=== PATIENT | male | born 1970 | race Caucasian/White ===

== ENCOUNTER 2020-03-02 17:12 | Emergency (ER) | payer OTHER, SELFPAY ==
--- NOTE | ~2020-03-02 | XR_ITS ---
EXAMINATION: XR chest 2V DATE: 03/02/2020 19:14 INDICATION: Hypertension presenting with mid sternal chest and left arm pain TECHNIQUE: PA and lateral views of the chest were obtained. COMPARISON: None FINDINGS: The lungs are clear with no focal airspace opacities, pulmonary edema, pleural effusion or pneumothor ax. The cardiomediastinal silhouette is normal. Cholecystectomy clips in the right upper quadrant. William ashley and soft tissues are unremarkable. IMPRESSION: 1. No acute cardiopulmonary disease. Reviewed, dictated and finalized at location [facility].
--- NOTE | 2020-03-02 17:14 | ECG_ITS ---
Measurements Intervals [place] Rate: 89 P: 35 MT: 142 QRS: -5 QRSD: 108 T: 0 QT: 340 QTc: 414 Interpretive Statements SINUS RHYTHM WITH SINUS ARRHYTHMIA INCOMPLETE RIGHT BUNDLE BRANCH BLOCK DELAYED PRECORDIAL R/S TRANSITION VOLTAGE CRITERIA FOR LVH BORDERLINE T WAVE ABNORMALITY- INFERIOR LEADS BORDERLINE ECG Electronically Signed On 03-02-2020 18:40:00 CDT by Zach Harrington D.O.
[2020-03-02 17:27] VITALS: BP 133/87; PULSE 107; RESP 17; TEMP 36.7; O2SAT 98
[2020-03-02 17:31] LABS: Basophils Absolute Auto 0.1 K/mm3 (0.0-0.1); Basophils Percent Auto 0.6 % (0.2-1.2); Eosinophils Absolute Auto 0.1 K/mm3 (0-0.3); Eosinophils Percent Auto 1.3 % (0-4.4); Hematocrit 44.6 % (42.0-52.0); Hemoglobin 15.5 g/dL (14.0-18.0); Immature Granulocyte Absolute 0.05 K/mm3 (0.00-0.031); Immature Granulocyte Percent A 0.6 % (0-0.5); Lymphocytes Absolute Auto 2.43 K/mm3 (0.9-3.2); Lymphocytes Percent Auto 28.9 % (18.3-44.2); Mean Corpuscular HGB Conc 34.8 g/dl (32-36); Mean Corpuscular Hemoglobin 30.3 pg (26-34); Mean Corpuscular Volume 87.1 fl (80-100); Mean Platelet Volume 10.4 fl (7.4-10.4); Monocytes Absolute Auto 0.8 K/mm3 (0.1-0.6); Monocytes Percent Auto 9.1 % (2.6-8.5); Neutrophils Percent Auto 59.5 % (45.5-73.1); Platelet Count Result 322 k/mm3 (150-375); Red Blood Count 5.12 M/mm3 (4.6-6.20); Red Cell Distribution Width 12.8 % (11.5-14.5); White Blood Count 8.4 K/mm3 (4.5-10.0)
[2020-03-02 17:42] LABS: Anion Gap 11 mmol/L (8-16); Blood Urea Nitrogen 18 mg/dL (9-20); Calcium 9.6 mg/dL (8.4-10.2); Carbon Dioxide 26 mmol/L (22-30); Chloride 101 mmol/L (98-107); Estimated CRCL calculation 88 ml/min; Estimated Glomerular Filt Rate > 60; Glucose 106 mg/dL (75-110); Potassium 3.8 mmol/L (3.4-5.0); Sodium 138 mmol/L (137-145)
[2020-03-02 17:45] LABS: INR 0.9; Prothrombin Time 11.8 Seconds (11.1-14.7)
[2020-03-02 17:46] LABS: Partial Thromboplastin Time 30.1 SECONDS (22.3-36.8)
[2020-03-02 17:53] LABS: Troponin I < 0.012 ng/mL (0.000-0.034)
--- NOTE | 2020-03-02 20:00 | ED.CHESTPAIN ---
HPI - Chest Pain General Chief Complaint: Chest Pain Stated Complaint: CHEST PAIN Time Seen by Provider: 03/02/20 19:00 History of Present Illness HPI narrative: Patient is a 49-year-old male who presents the ER with chest discomfort and left arm pain. Patient reports he became very stressed yesterday and developed severe left arm pain. The arm pain lasted for approximately 2 hours and his stress only lasted for 10 to 15 minutes. He was having no diaphoresis or shortness of breath at that time. He did not note any chest discomfort at that time. He reports history of CHF and has been seen by Dr. Dumont with [facility]. He does have hypertension. Reports the majority of his stress is derived from his marriage because his is a narcissist. It is caused him to lose a job in the past. Patient reports today while walking around he had some very subtle central chest discomfort that did not radiate that he does not think he was experiencing yesterday. He has never had an VT. No discomfort at this time. The arm discomfort occurring during times of stress is happened twice last couple weeks and be episode he had last night was remarkably more severe. Related Data Home Medications Medication Instructions Recorded Confirmed amlodipine 2.5 mg PO BID 03/02/20 losartan-hydrochlorothiazide 1 tablet PO DAILY 03/02/20 Allergies Allergy/AdvReac Type Severity Reaction Status Date / Time No Known Allergies Allergy Verified 03/02/20 19:05 Review of Systems Review of Systems: All systems reviewed & are unremarkable except as noted in HPI and below Constitutional: Constitutional: Denies chills, Denies fever(s) and Denies weakness ENT: Denies dizziness and Denies sore throat Cardiovascular: Cardiovascular: Reports chest pain, Denies rapid heart rate and Reports radiating jaw, neck or arm pain Respiratory: Respiratory: Denies cough, Denies dyspnea and Denies wheezing Gastrointestinal: Gastrointestinal: Denies nausea and Denies vomiting [facility] Past Medical History Medical History (Updated 03/02/20 @ 21:39 by Christopher Anguiano MD) Cardiomyopathy DVT (deep venous thrombosis) Hypertension Pulmonary embolism Surgical History Surgical History (Updated 03/02/20 @ 20:06 by Christopher Anguiano MD) History of cholecystectomy Social History Social History (Updated 03/02/20 @ 20:06 by Christopher Anguiano MD) Smoking status: Never smoker Gender identity (if verbalized by the patient): Male Exam Narrative: Exam Narrative: GENERAL: Well-appearing, well-nourished, and in no acute distress. HEAD: Normocephalic, atraumatic. CHEST: Clear to auscultation. No respiratory distress. HEART: Regular rate and rhythm. Normal peripheral pulses. EXTREMITIES: Normal range of motion. No edema. SKIN: Warm, dry, no rash. NEURO: Alert and oriented x3. PSYCH: Normal mood and affect. Course Course Emergency Course: Troponin negative x2. Discussed case with Dr. Sky certified pharmacy technician with [facility]. Recommends outpatient work-up and patient be contacted by the office. Vital Signs Vital signs: Vital Signs Temperature 98.1 F 03/02/20 17:27 Pulse Rate 107 H 03/02/20 17:27 Respiratory Rate 17 03/02/20 17:27 Blood Pressure 133/87 03/02/20 17:27 Pulse Oximetry 98 03/02/20 17:27 Temperature 98.1 F 03/02/20 17:27 Pulse Rate 87 03/02/20 21:31 Respiratory Rate 17 03/02/20 21:31 Blood Pressure 131/92 H 03/02/20 21:31 Pulse Oximetry 96 03/02/20 21:31 MDM - Chest Pain Lab Data Result diagrams: 03/02/20 17:23 03/02/20 17:23 Labs: Lab Results 03/02/20 03/02/20 03/02/20 Range/Units 17:23 17:23 17:23 WBC 8.4 (4.5-10.0) K/mm3 RBC 5.12 (4.6-6.20) M/mm3 Hgb 15.5 (14.0-18.0) g/dL Hct 44.6 (42.0-52.0) % MCV 87.1 (80-100) fl MCH 30.3 (26-34) pg MCHC 34.8 (32-36) g/dl RDW 12.8 (11.5-14.5) % Plt Count 322 (1
[2020-03-02 20:54] VITALS: BP 142/88; PULSE 86; RESP 16; O2SAT 97
[2020-03-02 21:23] LABS: Troponin I < 0.012 ng/mL (0.000-0.034)
[2020-03-02 21:31] VITALS: BP 131/92; PULSE 87; RESP 17; O2SAT 96
== END 2020-03-02 22:06 | disposition home or self-care (01) ==
PROVIDERS: Emergency Medicine; Emergency Provider Emergency Medicine; PCP Family Medicine
DX: R07.89 Other chest pain (principal); I11.0 Hypertensive heart disease with heart failure; I50.9 Heart failure, unspecified; Z86.718 Personal history of other venous thrombosis and embolism; Z86.711 Personal history of pulmonary embolism; I45.10 Unspecified right bundle-branch block; R94.31 Abnormal electrocardiogram [ECG] [EKG]
CPT/HCPCS: 36415; 71046; 80048; 84484; 85025; 85610; 85730; 93005; 99284

== ENCOUNTER 2020-07-29 22:51 | Emergency (ER) | payer OTHER, SELFPAY ==
--- NOTE | ~2020-07-29 | CT_ITS ---
EXAMINATION: CTA chest PE protocol DATE: 07/30/2020 00:04 INDICATION: Dyspnea. Covid 19 infection. TECHNIQUE: Computed tomography angiography (CTA) of the chest was performed with 100 mL Omnipaque-350 intravenous contrast timed to evaluate the pulmonary arteries. Coronal maximum intensity projection 3D-reconstructions were created by the technologist. Automated exposure control and iterative reconst ruction technique were employed. Exam dose: 597.48 mGy-cm total exam DLP. COMPARISON: None. FINDINGS: There is limited contrast enhancement of the pulmonary arteries. No central pulmonary embol ism is identified. Normal heart size. No pericardial or pleural effusion. There are a few focal and mild infiltrates in the posterior left upper lobe and posterolateral basilar left lower lobe. These may represent areas o f mild pneumonia. No hilar or mediastinal mass lesion or lymphadenopathy. Included skeletal structures are unremarkable. IMPRESSION: Limited contrast enhancement of the pulmonary arteries; no apparent central pulmonary em bolism Several focal mild left upper and lower lobe infiltrates Reviewed, dictated and finalized at [facility]. Reviewed, dictated and finalized at location [facility]. TRE ARTS PROFESSOR IMPRESSION: Limited contrast enhancement of the pulmonary arteries; no apparen t central pulmonary embolism Several focal mild left upper and lower lobe infiltrates
[2020-07-29 22:56] VITALS: BP 126/86; PULSE 109; RESP 24; TEMP 36.5; O2SAT 98
--- NOTE | 2020-07-29 23:10 | ECG_ITS ---
Measurements Intervals [place] Rate: 88 P: 23 [place]: 171 QRS: -7 QRSD: 110 T: 32 QT: 340 QTc: 412 Interpretive Statements SINUS RHYTHM DELAYED PRECORDIAL R/S TRANSITION VOLTAGE CRITERIA FOR LVH BORDERLINE T WAVE ABNORMALITY- ANTERIOR LEADS BASELINE ARTIFACT- I, II, AVR, AVF BORDERLINE ECG Electronically Signed On 07-30-2020 7:30:23 NUCLEAR POWERPLANT SUPERVISOR by Zach Harrington D.O.
[2020-07-29 23:21] LABS: Basophils Percent Auto 0.2 % (0.2-1.2); Eosinophils Absolute Auto 0.1 K/mm3 (0-0.3); Eosinophils Percent Auto 1.7 % (0-4.4); Hematocrit 43.4 % (42.0-52.0); Hemoglobin 15.3 g/dL (14.0-18.0); Immature Granulocyte Absolute 0.04 K/mm3 (0.00-0.031); Immature Granulocyte Percent A 0.5 % (0-0.5); Lymphocytes Absolute Auto 2.95 K/mm3 (0.9-3.2); Lymphocytes Percent Auto 36.7 % (18.3-44.2); Mean Corpuscular HGB Conc 35.3 g/dl (32-36); Mean Corpuscular Hemoglobin 29.9 pg (26-34); Mean Corpuscular Volume 84.8 fl (80-100); Mean Platelet Volume 10.2 fl (7.4-10.4); Monocytes Absolute Auto 0.6 K/mm3 (0.1-0.6); Monocytes Percent Auto 7.5 % (2.6-8.5); Neutrophils Absolute Auto 4.3 K/mm3 (1.3-6.7); Neutrophils Percent Auto 53.4 % (45.5-73.1); Platelet Count Result 316 k/mm3 (150-375); Red Blood Count 5.12 M/mm3 (4.6-6.20); Red Cell Distribution Width 12.7 % (11.5-14.5)
[2020-07-29 23:30] LABS: INR 0.8; Prothrombin Time 11.8 Seconds (11.1-14.7)
[2020-07-29 23:31] LABS: Partial Thromboplastin Time 28.8 SECONDS (22.3-36.8)
[2020-07-29 23:33] LABS: Alanine Aminotransferase 74 U/L (4-50); Albumin Level 4.3 g/dL (3.5-5.1); Alkaline Phosphatase 45 U/L (38-126); Anion Gap 8 mmol/L (8-16); Aspartate Amino Transferase 30 U/L (17-59); Bilirubin,Total 0.3 mg/dL (0.2-1.3); Blood Urea Nitrogen 24 mg/dL (9-20); Calcium 9.1 mg/dL (8.4-10.2); Carbon Dioxide 28 mmol/L (22-30); Chloride 102 mmol/L (98-107); Estimated CRCL calculation 87 ml/min; Estimated Glomerular Filt Rate > 60; Glucose 128 mg/dL (75-110); Potassium 3.3 mmol/L (3.4-5.0); Sodium 138 mmol/L (137-145)
--- NOTE | 2020-07-29 23:34 | ED.GENADULT ---
HPI - General Adult General Chief complaint: Upper Respiratory Infection Stated complaint: sob, covid + Time Seen by Provider: 07/29/20 23:06 Source: RN notes reviewed History of Present Illness HPI narrative: Patient presents emergency department from home for shortness of breath. Patient states that he was diagnosed with Covid 11 days ago. States that today he began to feel similar shortness of breath at home and presented to the emergency department for further evaluation. This time he states that shortness of breath is improved he denies any fevers or chills chest pain or any other symptoms denies any tobacco use patient states he does have a history of blood clot in the past when he tore his calf muscle but is on no current blood thinners Related Data Home Medications Medication Instructions Recorded Confirmed amlodipine 2.5 mg PO BID 03/02/20 losartan-hydrochlorothiazide 1 tablet PO DAILY 03/02/20 Allergies Allergy/AdvReac Type Severity Reaction Status Date / Time No Known Allergies Allergy Verified 03/02/20 19:05 Review of Systems Review of Systems: Narrative: Gen.: Denies fevers or chills ENT: Denies congestion Respiratory: See HPI CV: Denies chest pain or palpitations GI: Denies abdominal pain nausea, emesis or diarrhea Musculoskeletal: Denies back pain or muscle pain Neuro: Denies numbness, tingling, weakness or focal weakness Skin: Denies rash Except as documented, all other systems reviewed and negative PMFSH Past Medical History Medical History Cardiomyopathy DVT (deep venous thrombosis) Hypertension Pulmonary embolism Surgical History Surgical History (Updated 03/02/20 @ 20:06 by Christopher Anguiano MD) History of cholecystectomy Social History Social History Smoking status: Never smoker Gender identity (if verbalized by the patient): Male Exam Narrative: Exam Narrative: APPEARANCE: No acute distress, nontoxic, resting in bed EYES: EOMI HEENT: Normocephalic, atraumatic, OMM RESPIRATORY: No respiratory distress Clear to auscultation bilaterally with no rhonchi wheezing or rales. CARDIOVASCULAR: Regular rate and rhythm without murmurs rubs or gallops. ABDOMINAL: Soft, nontender, nondistended, no rebound or guarding MUSCULOSKELETAl: Moves all extremities. No clubbing, cyanosis or edema. NEURO: Awake and alert. Following commands, speech normal, no focal deficits SKIN:: Warm, dry. No rashes lesions or abrasions PSYCHIATRIC: Normal affect/mood, Course Course Emergency Course: Patient sleeping in room 100% on room air states feeling better Discussed with patient results of workup and diagnosis. Discussed need for follow-up with primary care, proper use of medication, and reasons to return to the emergency department. Patient understands and agrees to current treatment plan Vital Signs Vital signs: Vital Signs Temperature 97.7 F 07/29/20 22:56 Pulse Rate 109 H 07/29/20 22:56 Respiratory Rate 24 H 07/29/20 22:56 Blood Pressure 126/86 07/29/20 22:56 Pulse Oximetry 98 07/29/20 22:56 Temperature 97.7 F 07/29/20 22:56 Pulse Rate 98 07/29/20 23:49 Respiratory Rate 24 H 07/29/20 22:56 Blood Pressure 126/86 07/29/20 22:56 Pulse Oximetry 98 07/29/20 22:56 Medical Decision Making Vital Signs Vital Signs: Vital Signs Temperature 97.7 F 07/29/20 22:56 Pulse Rate 109 H 07/29/20 22:56 Respiratory Rate 24 H 07/29/20 22:56 Blood Pressure 126/86 07/29/20 22:56 Pulse Oximetry 98 07/29/20 22:56 Temperature 97.7 F 07/29/20 22:56 Pulse Rate 98 07/29/20 23:49 Respiratory Rate 24 H 07/29/20 22:56 Blood Pressure 126/86 07/29/20 22:56 Pulse Oximetry 98 07/29/20 22:56 Lab Data Result diagrams: 07/29/20 23:16 07/29/20 23:16 Labs: Lab Results 07/29/20 07/29/20 07/29/20 Range/Units
[2020-07-29] MEDS: ALBUTEROL SULFATE (*SP) AEROSOL 1 PUFF 2 PUFF INHALATION (23:46)
[2020-07-29 23:49] VITALS: PULSE 98
[2020-07-30 00:38] VITALS: BP 130/83; PULSE 89; RESP 16; TEMP 37.1; O2SAT 93
== END 2020-07-30 00:44 | disposition home or self-care (01) ==
PROVIDERS: Emergency Provider Emergency Medicine; PCP Family Medicine
DX: U07.1 COVID-19 (principal); I10 Essential (primary) hypertension; Z86.711 Personal history of pulmonary embolism; Z86.718 Personal history of other venous thrombosis and embolism; R94.31 Abnormal electrocardiogram [ECG] [EKG]; R91.8 Other nonspecific abnormal finding of lung field
CPT/HCPCS: 36415; 71275; 80053; 85025; 85610; 85730; 93005; 94640; 99284; A9270; Q9967

== ENCOUNTER 2020-08-02 15:09 | Emergency (ER) | payer OTHER, SELFPAY ==
--- NOTE | ~2020-08-02 | XR_ITS ---
EXAMINATION: XR chest 1V portable DATE: 08/02/2020 16:11 INDICATION: Shortness of breath. COVID positive. TECHNIQUE: frontal view of the chest was obtained. COMPARISON: Chest CT dated 07/29/2020 FINDINGS: No focal airspace opacities, pulmonary edema, pleural effusion or pneumothorax. The cardiomediastinal silhouette is within normal limits for AP technique. Visualized bones and soft tissues are unremarka ble. IMPRESSION: 1. No acute cardiopulmonary disease. Reviewed, dictated and finalized at location [facility]. ST SCIENTIST
[2020-08-02 15:15] VITALS: BP 151/104; PULSE 86; RESP 20; TEMP 36.6; O2SAT 96
--- NOTE | 2020-08-02 15:39 | ECG_ITS ---
Measurements Intervals [place] Rate: 84 P: 35 RI: 169 QRS: -14 QRSD: 106 T: -5 QT: 342 QTc: 406 Interpretive Statements SINUS RHYTHM VOLTAGE CRITERIA FOR LVH BORDERLINE R WAVE PROGRESSION, ANTERIOR LEADS MINIMAL Q WAVES- HIGH LATERAL LEADS BORDERLINE T WAVE ABNORMALITY- ANT/INF LEADS BORDERLINE ECG Electronically Signed On 08-02-2020 15:45:27 FIELD SERVICE REP by Zach Harrington D.O.
[2020-08-02] MEDS: MECLIZINE HCL 25 MG TABLET PO (16:00)
[2020-08-02] MEDS: ONDANSETRON INJ 4 MG/2 ML VIAL IV PUSH (16:00)
[2020-08-02 16:05] LABS: Basophils Percent Auto 0.5 % (0.2-1.2); Eosinophils Absolute Auto 0.1 K/mm3 (0-0.3); Eosinophils Percent Auto 0.9 % (0-4.4); Hematocrit 41.6 % (42.0-52.0); Hemoglobin 14.4 g/dL (14.0-18.0); Immature Granulocyte Absolute 0.05 K/mm3 (0.00-0.031); Immature Granulocyte Percent A 0.8 % (0-0.5); Lymphocytes Absolute Auto 1.69 K/mm3 (0.9-3.2); Lymphocytes Percent Auto 26.5 % (18.3-44.2); Mean Corpuscular HGB Conc 34.6 g/dl (32-36); Mean Corpuscular Hemoglobin 29.4 pg (26-34); Mean Corpuscular Volume 85.1 fl (80-100); Mean Platelet Volume 10.3 fl (7.4-10.4); Monocytes Absolute Auto 0.5 K/mm3 (0.1-0.6); Monocytes Percent Auto 8.3 % (2.6-8.5); Platelet Count Result 307 k/mm3 (150-375); Red Blood Count 4.89 M/mm3 (4.6-6.20); Red Cell Distribution Width 12.8 % (11.5-14.5); White Blood Count 6.4 K/mm3 (4.5-10.0)
[2020-08-02 16:15] LABS: INR 0.9; Prothrombin Time 12.3 Seconds (11.1-14.7)
[2020-08-02 16:16] LABS: Alanine Aminotransferase 73 U/L (4-50); Albumin Level 4.2 g/dL (3.5-5.1); Alkaline Phosphatase 43 U/L (38-126); Anion Gap 8 mmol/L (8-16); Aspartate Amino Transferase 32 U/L (17-59); Bilirubin,Total 0.4 mg/dL (0.2-1.3); Blood Urea Nitrogen 15 mg/dL (9-20); Calcium 9.2 mg/dL (8.4-10.2); Carbon Dioxide 24 mmol/L (22-30); Chloride 107 mmol/L (98-107); Estimated CRCL calculation 87 ml/min; Estimated Glomerular Filt Rate > 60; Glucose 109 mg/dL (75-110); Partial Thromboplastin Time 28.6 SECONDS (22.3-36.8); Potassium 4.1 mmol/L (3.4-5.0); Sodium 139 mmol/L (137-145)
[2020-08-02 16:26] LABS: NT Pro B Type Natriuretic Pept 37 PG/ML (5-100)
--- NOTE | 2020-08-02 16:32 | ED.DIZZY ---
HPI - Dizziness General Chief Complaint: Dizziness Stated Complaint: unable to sleep at night, covid Time Seen by Provider: 08/02/20 15:12 Source: patient Mode of arrival: ambulatory Limitations: no limitations History of Present Illness HPI Narrative: This is 50 year old male with history of hypertension who presents for evaluation of difficulty sleeping. He was diagnosed with COVID 14 days ago. He states starting on Saturday he started feeling like he could not breath. He was evaluated in ER on Saturday and he was discharged home with an albuterol inhaler. He reports mild cough but denies chest pain or fever. Over the past couple of nights, he reports he wakes up dizzy, nausea and short of breath. He states when he just about to fall asleep he starts having dizziness with nausea. He checks his oxygen saturation and he states he will read in the 80%. He reports his oxygen normalized when he gets up to walk. He states he is scare he is going to in his sleep. He reports severe nausea over the past couple of days. He denies abdominal pain or vomiting. He does reports diarrhea. MD elicited complaint: dizziness Related Data Home Medications Medication Instructions Recorded Confirmed amlodipine 2.5 mg PO BID 03/02/20 hydrochlorothiazide 25 mg PO DAILY 08/02/20 losartan 100 mg PO DAILY 08/02/20 metoprolol tartrate 25 mg PO DAILY 08/02/20 Allergies Allergy/AdvReac Type Severity Reaction Status Date / Time No Known Allergies Allergy Verified 08/02/20 15:22 Review of Systems Review of Systems: All systems reviewed & are unremarkable except as noted in HPI and below PMFSH Past Medical History Medical History Cardiomyopathy DVT (deep venous thrombosis) Hypertension Pulmonary embolism Surgical History Surgical History (Updated 03/02/20 @ 20:06 by Christopher Anguiano MD) History of cholecystectomy Social History Social History Smoking status: Never smoker Gender identity (if verbalized by the patient): Male Exam Narrative: Exam Narrative: GENERAL: Well-appearing, well-nourished, and in no acute distress. HEAD: Normocephalic, atraumatic EYES: PERRLA and EOMI, conjunctiva clear without discharge EARS: TM's clear bilaterally without erythema or dullness NOSE: Nares clear, no rhinorrhea or epistaxis THROAT:Mucous membranes moist, Oropharynx normal without erythema, exudate, peritonsillar swelling or fluctuance NECK: Supple, without lymphadenopathy or mass RESPIRATORY: No respiratory distress, Airway patent, Respirations non-labored, Clear to auscultation without rales, rhonchi or wheeze HEART: Regular rate and rhythm. No murmur heard. Normal peripheral pulses. ABDOMEN: Soft, nontender, nondistended, normal active bowel sounds. No masses. No rebound or guarding, No organomegaly. EXTREMITIES: No edema, normal strength with full range of motion. SKIN: Warm, dry, normal color without rash NEURO: Alert and oriented x3. CN 2-12 grossly intact. No focal deficits. PSYCH: Normal mood and affect. Course Reevaluation(s) Reevaluation #1: Patient reports he feels better in ER. He does not have shortness of breath or dizziness. I laid patient down for a while he never developed sob, tachypnea or hypoxia. I ambulated patient and his oxygen maintained 97% on room air. I Discussed labs are unremarkable . He will try to find a primary care physician. This may be anxiety or maybe he has sleep apnea. He understands he will need to follow up. No need for admission at this time. Date: 08/02/20 Time: 18:04 Vital Signs Vital signs: Vital Signs Temperature 97.8 F 08/02/20 15:15 Pulse Rate 86 08/02/20 15:15 Respiratory Rate 20 08/02/20 15:15 Blood Pressure 151/104 H 08/02/20 15:15 Pulse Oximetry 96 08/02/20 15:15 Temperature 97.8 F 08/02/20 15:15 Pulse Rate
[2020-08-02 17:02] LABS: Add Urine Microscopic? YES; Appearance Urine Clear (Clear); Bilirubin Urine Negative (Negative); Blood Urine Negative (Negative); Color Urine Straw (Yellow); Glucose Urine UA Negative (Negative); Ketones Urine Negative (Negative); Leukocyte Esterase Ur Negative LEU/UL (Negative); Mucus Urine Rare /lpf; Nitrate Urine Negative (Negative); Protein Urine Negative (Negative); RBC Urine 0-2 /hpf (0-2); Specific Grav Ur 1.013 (1.001-1.035); Urobilinogen Urine Negative mg/dL (<2.0); WBC Urine 0-3 /hpf
[2020-08-02 17:06] LABS: D Dimer 0.27 ug/mL (<0.48)
[2020-08-02 17:38] VITALS: BP 129/89; PULSE 74
[2020-08-02 17:42] VITALS: BP 128/106; PULSE 80
[2020-08-02 17:44] VITALS: BP 131/103; PULSE 89
[2020-08-02 18:16] VITALS: BP 123/97; PULSE 73; RESP 18; O2SAT 97
== END 2020-08-02 18:17 | disposition home or self-care (01) ==
PROVIDERS: Emergency Provider General Practice; PCP Family Medicine
DX: U07.1 COVID-19 (principal); R42 Dizziness and giddiness; Z86.718 Personal history of other venous thrombosis and embolism; Z86.711 Personal history of pulmonary embolism; I10 Essential (primary) hypertension; R94.31 Abnormal electrocardiogram [ECG] [EKG]
CPT/HCPCS: 36415; 71045; 80053; 81001; 83880; 85025; 85380; 85610; 85730; 93005; 96374; 99284; A9270; J2405